=== PATIENT | male | born 1995 | race African-American/Black ===

== ENCOUNTER 2018-06-12 02:02 | Emergency (ER) | payer OTHER ==
[~2018-06-12] VITALS: Ht 180.3 cm; Wt 84.0 kg
[2018-06-12] MEDS ORDERED: PREDNISONE10 MG PO (02:38)
[2018-06-12] MEDS ORDERED: NORCO1 TA1 PO (02:38)
[2018-06-12 03:03] VITALS: BP 124/66
== END 2018-06-12 02:59 | disposition home or self-care (01) | DRG 93 ==
LOC: ED 02:02
DX: G89.29 Other chronic pain (principal); M54.5 Low back pain; M79.604 Pain in right leg; V89.2XXD Person injured in unspecified motor-vehicle accident, traffic, subsequent encounter